=== PATIENT | female | born 1985 | race Hispanic/Latino ===

== ENCOUNTER 2018-05-25 13:56 | Emergency (ER) | payer OTHER ==
[2018-05-25] MEDS ORDERED: DEXAMETHASONE SOD PHOSPHATE 10MG/ML 1ML VIAL ONE (14:19)
== END 2018-05-25 14:56 | disposition home or self-care (01) ==
LOC: EDH 13:56
DX: J01.90 Acute sinusitis, unspecified (principal)
CPT/HCPCS: 96372; 99283; J1100

== ENCOUNTER 2019-09-12 18:32 | Emergency (ER) | payer OTHER ==
[2019-09-12] MEDS ORDERED: TETANUS/DIPHTHERIA TOXOID [ADULT] 0.5 ML VIAL IM ONE (19:25)
== END 2019-09-12 19:59 | disposition home or self-care (01) ==
LOC: EDH 18:32
DX: S93.401A Sprain of unspecified ligament of right ankle, initial encounter (principal); Z98.890 Other specified postprocedural states; W18.39XA Other fall on same level, initial encounter; Y93.89 Activity, other specified; Y92.89 Other specified places as the place of occurrence of the external cause; Y99.8 Other external cause status
CPT/HCPCS: 73600; 90471; 90714